=== PATIENT | female | born 1975 | race Caucasian/White ===

== ENCOUNTER 2016-06-13 15:51 | Emergency (ER) | payer OTHER ==
--- OUTSIDE RECORDS SUMMARY | 2016-06-13 17:12 | XMS REPORT | Continuity of Care Document ---
:1975 Author Organization [facility] ([facility]) Address [address] [place] [address] Phone [phone] Care Team Providers Name Role Phone Lars Sousa-Javier Primary Care Provider [phone] Source Comments This disclosure is being made pursuant to the Care Everywhere program, applicable federal and state laws, and may not contain all informaitonavailable regarding this patient.[facility] ([facility]) Active Allergies and Adverse Reactions Allergen Noted Date Severity Reactions Comments Hydroxyzine Pamoate 06/02/2011 Unknown Pt not cooperative. Latex 06/02/2011 Unknown Pt not cooperative. Nicoderm 06/02/2011 Unknown Pt not cooperative. Current Medications Prescription Sig. Disp. Refills Start Date End Date Status PARoxetine 40 mg Take 40 mg by mouth Active tablet daily. Indications: Depression amphetamine-dextroamp Take 1.5 tablets in Active hetamine 20 mg tablet the morning and 1 tablet as needed. Indications: Attention-Deficit Hyperactivity Disorder pantoprazole 40 mg EC Take 40 mg by mouth Active tablet daily. Indications: Gastric Hypersecretory Conditions traZODone 50 mg Take 1 Tab by mouth 2 30 Tab 0 06/05/2011 Active tablet times daily. Indications: Anxiety clotrimazole 1 % apply topically 2 30 g 0 06/05/2011 Active cream times daily. Apply a thin layer to affected area as directed. Indications: athlete's foot Active Problems Problem Noted Date Suicidal ideation 06/02/2011 Social History Tobacco Use Types Packs/Day Years Used Date Current Every Day Smoker Cigarettes 2 Tobacco Cessation:Ready to Quit: No Comments: Alcohol Use Drinks/Week oz/Week Comments No Last Filed Vital Signs Vital Sign Reading Time Taken Blood Pressure 91/62 06/04/2011 8:00 AM CDT Pulse 68 06/04/2011 8:00 AM CDT Temperature 35.6 C (96.1 F) 06/04/2011 8:00 AM CDT Respiratory Rate 20 06/04/2011 11:00 AM CDT Height 1.575 m (5' 2") 06/02/2011 5:00 AM CDT Weight 71.1 kg (156 lb 12 oz) 06/03/2011 8:00 AM CDT Body Mass Index 28.66 06/03/2011 8:00 AM CDT Oxygen Saturation 97% 06/02/2011 3:23 AM CDT Plan of Care Health Maintenance Due Date Last Done Comments Hepatitis B Vaccine (1 of 3 - Primary Series) 1975 Tdap Vaccine 1988 Lipid Disorder Screening 07/15/1995 MMR Vaccine 07/15/1995 Td Vaccine 07/15/1995 Pneumococcal Vaccine (1 of 1 - PPSV23) 1996 Cervical Cancer Screening 07/15/2007 Influenza Vaccine: Seasonal (#1) 10/04/2015 Results from Last 3 Months Not on file
[2016-06-13] MEDS ORDERED: NORMAL SALINE 1,000 ML IV ONE (17:13)
[2016-06-13] MEDS ORDERED: ONDANSETRON HCL/PF 2 MG/ML VIAL IV ONE (17:13)
[2016-06-13] MEDS ORDERED: KETOROLAC TROMETHAMINE 30 MG/ML VIAL IV ONE (17:13)
--- NOTE | 2016-06-13 17:25 | ERNOTE ---
Abdominal HPI - Narrative Date of Service: 06/13/16 - General Chief Complaint: Abdominal Pain Time Seen by Provider: 06/13/16 17:03 Source: patient Exam Limitations: no limitations - Immun/Allergies/Home Medications Immunizatons: IMMUNIZATION HX Immunizations Up to Date Yes History of Influenza Vaccine Yes Hx Pneumococcal Vaccination No Allergies/Adverse Reactions: Allergies No Known Allergies Allergy (Unverified 06/13/16 16:31) Home Medications: HOME MEDICATIONS Dextroamphetamine/Amphetamine [Adderall 10 mg Tablet] 10 mg PO DAILY 06/13/16 [ Last Taken Unknown] Dicyclomine HCl [Bentyl] 10 mg PO TID #10 capsule 06/13/16 [Last Taken Unknown] PARoxetine HCL [Paxil] 40 mg PO DAILY 06/13/16 [Last Taken Unknown] buPROPion HCL [Wellbutrin] 200 mg PO DAILY 06/13/16 [Last Taken Unknown] traZODone HCL [Trazodone HCl] 200 mg PO DAILY 06/13/16 [Last Taken Unknown] - History of Present Illness Narrative: Pt. comes in with c/o LLQ pain for 24 hours. Pt. states that the pain is worsening and she is unable to get comfortable. Pt. denies any NVD, SOB,CP, dysuria, hematuria, vaginal discharge or bleeding. Pt. was recently seen and diagnosed with ovarian cysts and endometriosis two weeks ago. Pt. states that pain is worsening in nature since yesterday. Review of Systems - Review of Systems Constitutional: Present: no symptoms reported. Absent: fever, chills, weakness , fatigue, malaise EYE: Present: no symptoms reported ENT: Present: no symptoms reported Respiratory: Present: no symptoms reported. Absent: shortness of breath, cough , wheezing Cardiology: Present: no symptoms reported. Absent: chest pain, palpitations, edema Gastrointestinal/Abdominal: Present: abdominal pain - LLQ. Absent: nausea, vomiting, diarrhea Genitourinary: Present: pain - L adnexal pain. Absent: frequency, dysuria, decreased urinary output, discharge Musculoskeletal: Present: no symptoms reported. Absent: back pain, neck pain Skin: Present: no symptoms reported. Absent: rash, lumps, change in color Neurological: Present: no symptoms reported. Absent: headache, dizziness/light- headedness, numbness, tingling All Other Systems: All systems neg except as marked - Patient's Past Medical History Patient History - Medical: Kidney stone Patient History - Cardiac/Respiratory: No pertinent hx Patient History - Cancer: No Hx of Cancer Patient History - Surgical Procedures: Cholecystectomy, Tubal Ligation, Urology Patient History - Other: None - Social History Living Situations: home Abuse History: No History of abuse Psych History: No pertinent hx Smoking Status: Current every day smoker Have you smoked in the past 12 months: Yes Do you dip or chew tobacco: No Patient requests Smoking Cessation Consult: No Initiate information on Smoking Cessation: No Alcohol Use: none Drug Use: none - Immunizations Immunizations Up to Date: Yes Hx Pneumococcal Vaccination: No History of Influenza Vaccine: Yes Physical Exam - Physical Exam General Appearance: Present: wd/wn, alert, no apparent distress Eye Exam: Normal inspection: bilateral, PERRL: bilateral, EOMI: bilateral Ears, Nose, Throat: Present: normal ENT inspection, normal pharynx Neck: Present: normal inspection, nontender. Absent: lymphadenopathy (R), lymphadenopathy (L) Respiratory: Present: no respiratory distress, normal breath sounds, no accessory muscle use, chest nontender, lungs clear Cardiovascular/Chest: Present: regular rate, rhythm, no murmur, normal peripheral pulses Gastrointestinal/Abdominal: Present: normal bowel sounds, nondistended, soft, tenderness - LLQ more suprapubic and pelvic pain than abdominal in nature Back Exam: Present: normal inspection, normal range of motion, no CVA tenderness , no vertebral tenderness Extremity Exam: Present: normal inspection Neurological Exam: Present: alert, oriented, normal mood/affect, no motor/ sensory deficits Skin Exam: Present: normal color, warm/dry. Absent: pallor, skin rash ED Progress - Date and Time Seen: Date and Time: 06/13/16 18:25 reviewed US and will compare to US obtained today. 06/13/16 19:16 no increase in size of uterine fibroids but cyst on R ovary i smaller and there is evidence of the rupture of this cyst. Feel that pt. pain is likely a result of the fibroids and will have pt[facility]. - Results and Orders Patient's Lab Results:: I have reviewed the patient's lab results. - Vital Signs Patient's Vital Signs:: I have reviewed the patient's vital signs. Vital Signs: Vital Signs 06/13/16 16:31 Temperature 36.6 C Pulse Rate 90 Respiratory 18 Rate Blood Pressure 119/75 O2 Sat by Pulse 97 Oximetry - CT/Ultrasound CT/Ultrasound Narrative: US report with hemorrhagic cyst smaller than previous and mild cul de sac fluid and uterine fibroids. - Progress/Reassessment Chief Complaint: Abdominal Pain Progress:: Improved Departure - Departure Clinical Impression: Uterine fibroid Qualifiers: Uterine leiomyoma location: unspecified location Qualified Code(s): D25.9 - Leiomyoma of uterus, unspecified Disposition: Home self-care Condition: Good Instructions: Uterine Fibroids, [id number] Additional Instructions: Please follow up with Dr Read in 2-3 days for follow up of uterine fibroids. Referrals: Patria Boss DO [Primary Care Provider] - Ramírez Read DO [Staff Physician] - Prescriptions: Dicyclomine HCl [Bentyl] 10 mg PO TID #10 capsule
[2016-06-13] MEDS ORDERED: KETOROLAC TROMETHAMINE 30 MG/ML VIAL ONE (17:27)
[2016-06-13] MEDS ORDERED: ONDANSETRON HCL/PF 2 MG/ML VIAL ONE (17:27)
[2016-06-13 17:46] LABS: Hematocrit 39.2 % (37.0-47.0); Hemoglobin 12.8 gm/dL (12.5-16.0); Mean Corpuscular Hemoglobin 28.1 pg (27-31); Mean Corpuscular Hgb Conc 32.7 g/dl (32-36); Mean Platelet Volume 11.1 fl (6.0-9.5); Neutrophil # 7.5 K/mm3 (1.3-6.0); Neutrophil % 55.6 % (42-75.0); Platelet Count 301 K/mm3 (150-450); Red Blood Count 4.56 M/mm3 (4.2-5.4); White Blood Count 13.5 K/mm3 (4.0-10.5)
[2016-06-13 17:58] LABS: Anion Gap 15.2 mmol/L (6.8-13.8); BUN/Creatinine Ratio 6.8 (9.0-21.6); Bilirubin, Total 0.3 mg/dL (0.0-1.1); Ca. Corrected For Albumin 8.8 mg/dL (8.4-10.2); Calcium * 9.1 mg/dL (7.9-10.9); Carbon Dioxide 25.6 mmol/L (24-32.6); Potassium 3.8 mmol/L (3.4-4.6); Total Protein 7.8 gm/dL (6.2-8.2)
[2016-06-13 18:39] LABS: Urine Bilirubin Negative (NEGATIVE); Urine Blood Negative /ul (NEGATIVE); Urine Ketone Negative (NEGATIVE); Urine Nitrite Negative (NEGATIVE); Urine Protein Negative (NEGATIVE); Urine Specific Gravity >=1.030 SP.GR. (1.005-1.010); Urine Urobilinogen Normal (NORMAL)
[2016-06-13 18:47] LABS: Urine Appearance Clear; Urine Bacteria 1+; Urine Color Yellow; Urine RBC None Seen /hpf (0-5); Urine WBC None Seen /hpf (0-5)
[2016-06-13] MEDS ORDERED: DICYCLOMINE HCL 10 MG/ML AMPUL IM ONE ×2 (18:49→19:16)
[2016-06-13 19:52] VITALS: BP 120/78
== END 2016-06-13 19:45 | disposition home or self-care (01) ==
LOC: ER 15:51
DX: D25.9 Leiomyoma of uterus, unspecified (principal); Z72.0 Tobacco use

== ENCOUNTER 2016-11-20 16:18 | Emergency (ER) | payer OTHER ==
[2016-11-20 16:25] VITALS: BP 135/93
[2016-11-20] MEDS ORDERED: diphenhydrAMINE HCL 50 MG/ML VIAL IV ONE (17:16)
[2016-11-20] MEDS ORDERED: KETOROLAC TROMETHAMINE 30 MG/ML VIAL IV ONE (17:16)
[2016-11-20] MEDS ORDERED: METOCLOPRAMIDE HCL 5 MG/ML VIAL IV ONE (17:16)
[2016-11-20] MEDS ORDERED: NORMAL SALINE 1,000 ML IV ONE (17:16)
--- NOTE | 2016-11-20 17:17 | ERNOTE ---
Headache ER HPI - Narrative Date of Service: 11/20/16 - General Presenting Symptoms: "migraine" Time Seen by Provider: 11/20/16 17:05 Source: patient, family, RN notes reviewed Exam Limitations: clinical condition - Immun/Allergies/Home Medications Immunizations: IMMUNIZATION HX Immunizations Up to Date Yes History of Influenza Vaccine Yes Hx Pneumococcal Vaccination No Allergies/Adverse Reactions: Allergies No Known Allergies Allergy (Verified 11/20/16 16:25) Home Medications: HOME MEDICATIONS Dextroamphetamine/Amphetamine [Adderall 10 mg Tablet] 10 mg PO DAILY 06/13/16 [ Last Taken Unknown] buPROPion HCL [Wellbutrin] 200 mg PO DAILY 06/13/16 [Last Taken Unknown] traZODone HCL [Trazodone HCl] 200 mg PO DAILY 06/13/16 [Last Taken Unknown] Duloxetine HCl [Cymbalta] 60 mg PO DAILY 11/20/16 [Last Taken Unknown] - History of Present Illness Narrative: 41 y/o female brought to the ED by her daughter for a migraine. Her headache began abruptly earlier this afternoon. She has frequent migraines, but reports they are usually not this bad. She also reports chest pain. She believes that her headache has caused the chest pain. Date (Duration): 11/20/16 Time (Timing): 13:00 Activity at onset: other - At work Timing of Headache: abrupt, still present Context Headache: Present: new onset Quality: Present: throbbing Severity Maximum: Present: severe Severity-Currently: Present: severe Headache frequency: Present: frequent headaches, similar to previous headache Exacerbated by:: Reports: light Prior Treament: Reports: similar symptoms before. Denies: recently seen Review of Systems - Review of Systems Constitutional: Absent: recent illness, fever, chills EYE: Absent: eye pain, vision changes ENT: Absent: ear pain, nose congestion, sore throat Respiratory: Absent: shortness of breath, cough Cardiology: Present: chest pain. Absent: palpitations, syncope, edema Gastrointestinal/Abdominal: Absent: nausea, vomiting, abdominal pain Genitourinary: Present: no symptoms reported Musculoskeletal: Absent: back pain, muscle pain, neck pain Skin: Absent: rash, lesions Neurological: Present: headache. Absent: dizziness/light-headedness Endocrine: Present: no symptoms reported Hematologic/Lymphatic: Absent: easy bruising, easy bleeding Psych: Present: anxiety - Patient's Past Medical History Patient History - Medical: Kidney stone Patient History - Cardiac/Respiratory: No pertinent hx Patient History - Cancer: No Hx of Cancer Patient History - Surgical Procedures: Cholecystectomy, Tubal Ligation, Urology Patient History - Other: None - Social History Living Situations: home Abuse History: No History of abuse Psych History: No pertinent hx Smoking Status: Current every day smoker Alcohol Use: none Drug Use: none - Immunizations Immunizations Up to Date: Yes Hx Pneumococcal Vaccination: No History of Influenza Vaccine: Yes Physical Exam - Physical Exam General Appearance: Present: wd/wn, alert, moderate distress, crying Head Exam: Present: normal inspection, no evidence of injury Eye Exam: Normal inspection: bilateral, PERRL: bilateral, Photophobia: bilateral Ears, Nose, Throat: Present: normal ENT inspection Neck: Present: normal inspection, nontender, supple Respiratory: Present: no respiratory distress, normal breath sounds, no accessory muscle use, chest nontender, lungs clear Cardiovascular/Chest: Present: regular rate, rhythm, no murmur Extremity Exam: Present: normal inspection, normal range of motion Neurological Exam: Present: alert, oriented, normal mood/affect ED Progress - Vital Signs Patient's Vital Signs:: I have reviewed the patient's vital signs. Vital Signs: Vital Signs 11/20/16 16:23 Temperature 36.6 C Pulse Rate 95 Respiratory 12 Rate Blood Pressure 135/93 O2 Sat by Pulse 97 Oximetry - EKG EKG: NSR EKG read: Reviewed by me - Progress/Reassessment Chief Complaint: Headache Progress:: Improved Progress Note-Subjective: 11/20/16 18:36 Headache has resolved with Toradol, Benadryl and Reglan IVP and a 1 liter NS bolus. Chest pain resolved shortly after medications were given and patient started to calm down. She has f/u scheduled with her PCP tomorrow. Departure Clinical Impression: Migraine Qualifiers: Migraine type: unspecified Status migrainosus presence: without status migrainosus Intractability: not intractable Qualified Code(s): G43.909 - Migraine, unspecified, not intractable, without status migrainosus - Departure Disposition: Home Follow Up Needed Condition: Stable Instructions: Migraine Headache, [id number], Form - Excuse from Work, School , or Physical Activity Referrals: Patria Boss DO [Primary Care Provider] -
[2016-11-20] MEDS ORDERED: KETOROLAC TROMETHAMINE 30 MG/ML VIAL ONE (17:19)
[2016-11-20] MEDS ORDERED: METOCLOPRAMIDE HCL 5 MG/ML VIAL ONE (17:19)
[2016-11-20] MEDS ORDERED: diphenhydrAMINE HCL 50 MG/ML VIAL ONE (17:19)
== END 2016-11-20 18:40 | disposition home or self-care (01) ==
LOC: ER 16:18
DX: G43.909 Migraine, unspecified, not intractable, without status migrainosus (principal); Z87.442 Personal history of urinary calculi; F17.200 Nicotine dependence, unspecified, uncomplicated

== ENCOUNTER 2017-04-01 16:40 | Emergency (ER) | payer BC, OTHER ==
[2017-04-01] MEDS ORDERED: NYSTATIN 60 ML BTL PO ONE ×2 (17:11→17:13)
[2017-04-01] MEDS ORDERED: diphenhydrAMINE HCL 12.5 MG/5 ML BTL PO ONE (17:11)
[2017-04-01] MEDS ORDERED: LIDOCAINE HCL 20 ML UDC MM ONE (17:11)
[2017-04-01] MEDS ORDERED: MAG HYDROX/ALUMINUM HYD/SIMETH 30 ML UDC PO ONE (17:11)
[2017-04-01] MEDS ORDERED: PHENAZOPYRIDINE HCL 100 MG TABLET PO ONE (17:16)
[2017-04-01] MEDS ORDERED: PHENAZOPYRIDINE HCL 100 MG TABLET ONE (17:23)
--- NOTE | 2017-04-01 17:24 | ERNOTE ---
ER Female HPI Date of Service: 04/01/17 Stated Complaint: THRUSH,YEAST INFECTION Time Seen by Provider: 04/01/17 17:01 Immunizations: IMMUNIZATION HX Immunizations Up to Date Yes History of Influenza Vaccine No Hx Pneumococcal Vaccination No Allergies/Adverse Reactions: Allergies nicotine [From Nicoderm CQ] Allergy (Mild, Verified 04/01/17 16:53) Other Home Medications: HOME MEDICATIONS Dextroamphetamine/Amphetamine [Adderall 10 mg Tablet] 10 mg PO DAILY 06/13/16 [ Last Taken Unknown] buPROPion HCL [Wellbutrin] 200 mg PO DAILY 06/13/16 [Last Taken Unknown] traZODone HCL [Trazodone HCl] 200 mg PO DAILY 06/13/16 [Last Taken Unknown] Duloxetine HCl [Cymbalta] 60 mg PO DAILY 11/20/16 [Last Taken Unknown] - History of Present Illness Narrative: patient stats she has been taking swish and spit nystatin for the diagnosis of thrush, but states she is almost out of the medication and her tongue is still burning. Patient states that her vagina and also feels very irritated as well. Patient has a long history of being treated for H. pylori and a yeast infection along with bacterial vaginosis on within the last month. Patient denies diarrhea or vaginal discharge. Patient was also recently treated with Diflucan. Patient is currently on Macrobid for UTI and complains of pain with voiding. Date (Duration): 04/01/17 Timing: Present: constant Quality: Present: burning Onset Location: Present: other - tongue Radiation: Present: none Activities at Onset: Present: none Prior Abdominal Problems: Present: none Prior Treatment: Present: recently seen, treated by physician, currently on antibiotics Review of Systems - Review of Systems Constitutional: Present: See HPI EYE: Present: no symptoms reported ENT: Present: See HPI Respiratory: Present: no symptoms reported Cardiology: Present: no symptoms reported Gastrointestinal/Abdominal: Present: no symptoms reported Genitourinary: Present: See HPI, dysuria Musculoskeletal: Present: no symptoms reported Skin: Present: no symptoms reported Neurological: Present: no symptoms reported Endocrine: Present: no symptoms reported Hematologic/Lymphatic: Present: no symptoms reported Psych: Present: no symptoms reported All Other Systems: All systems neg except as marked - Patient's Past Medical History Patient History - Medical: Kidney stone Patient History - Cardiac/Respiratory: No pertinent hx Patient History - Cancer: No Hx of Cancer Patient History - Surgical Procedures: Cholecystectomy, Tubal Ligation, Urology Patient History - Other: None LMP (females 10-50): 3 weeks - Social History Living Situations: home Abuse History: No History of abuse Psych History: No pertinent hx Smoking Status: Current every day smoker Have you smoked in the past 12 months: Yes Do you dip or chew tobacco: No Alcohol Use: sober Drug Use: marijuana - Immunizations Immunizations Up to Date: Yes Hx Pneumococcal Vaccination: No History of Influenza Vaccine: No Physical Exam - Physical Exam Narrative: The patient's oral cavity is moist. No white patches observed. Physical exam is negative. Patient does state that she is to soap in a washcloth to clean her lazaro area. General Appearance: Present: wd/wn, alert, no apparent distress Head Exam: Present: normal inspection, no evidence of injury Eye Exam: Normal inspection: bilateral Ears, Nose, Throat: Present: normal ENT inspection, normal pharynx Neck: Present: normal inspection, nontender Respiratory: Present: no respiratory distress, normal breath sounds, no accessory muscle use, chest nontender, lungs clear Cardiovascular/Chest: Present: regular rate, rhythm, no murmur, normal peripheral pulses Gastrointestinal/Abdominal: Present: normal bowel sounds, nontender, nondistended, soft, no organomegaly Back Exam: Present: normal inspection, normal range of motion, no CVA tenderness , no vertebral tenderness Extremity Exam: Present: normal inspection, non-tender, normal range of motion, no edema Neurological Exam: Present: alert, oriented, normal mood/affect, no motor/ sensory deficits Skin Exam: Present: normal color, warm/dry Lymphatic Exam: Present: no adenopathy ED Progress - Vital Signs Patient's Vital Signs:: I have reviewed the patient's vital signs. Vital Signs: Vital Signs 04/01/17 16:48 Temperature 36.6 C Pulse Rate 105 H Respiratory 18 Rate Blood Pressure 144/90 O2 Sat by Pulse 99 Oximetry - Progress/Reassessment Chief Complaint: Genitourinary Problem Progress:: Improved Plan - Plan Plan: Patient to start Magic mouthwash and by mouth Pyridium. Patient is going to follow up with her primary care provider on Sunday regarding her current issues. Departure Clinical Impression: Oral thrush - Departure Disposition: Home Follow Up Needed Condition: Stable Instructions: Thrush, Adult, [id number] Additional Instructions: Take medications as prescribed. Follow-up with your doctor on Sunday. Return to the emergency room if symptoms persist or become worse. Urine may be orange related to medication he received in the emergency room. This is a normal side effect of this medication. Referrals: Patria Boss, [Primary Care Provider] -
[2017-04-03 08:27] VITALS: BP 144/90
== END 2017-04-01 17:25 | disposition home or self-care (01) ==
LOC: ER 16:40
DX: B37.0 Candidal stomatitis (principal); F17.200 Nicotine dependence, unspecified, uncomplicated